=== PATIENT | female | born 1960 | race African-American/Black ===

== ENCOUNTER 2019-03-07 09:20 | Emergency (ER) | payer BC ==
[2019-03-07 10:10] LABS: #Basophils 0.1 thou/uL (0.0-0.2); #Eosinphils 0.1 thou/uL (0.0-0.7); #Lymphocytes 1.9 thou/uL (1.20-3.40); #Monocytes 0.4 thou/uL (0.11-0.59); #Neutrophils 2.1 thou/uL (1.40-6.50); %Basophils 1.2 % (0.0-1.0); %Eosinophils 1.6 % (0.0-10.0); %Lymphocytes 41.6 % (21.0-51.0); %Monocytes 9.2 % (0.0-10.0); %Neutrophils 46.4 % (42.0-75.0); Hemoglobin 13.7 g/dL (12.0-16.0); Mean Corpuscular Hemoglobin 33.1 pg (27.0-31.0); Mean Corpuscular Volume 97.6 fL (78.0-98.0); Mean Platelet Volume 7.9 fL (7.4-10.4); Platelet Count 201 thou/uL (130-400); RBC Distribution Width 12.2 % (11.5-14.5); Red Blood Cell (RBC) Count 4.14 mill/uL (4.20-5.40); White Blood Cell (WBC) Count 4.6 thou/uL (4.8-10.8)
[2019-03-07] MEDS ORDERED: cloNIDine 0.1 MG TAB ONE (10:16)
[2019-03-07 10:24] LABS: ALT (SGPT) 14 U/L (8-55); AST (SGOT) 17 U/L (5-34); Albumin 4.2 g/dL (3.5-5.0); Alkaline Phosphatase 91 U/L (40-150); Anion Gap 13 mmol/L (10-20); BUN (Urea Nitrogen) 11 mg/dL (9.8-20.1); Bilirubin, Total 1.8 mg/dL (0.2-1.2); Calc. Creatinine Clearance 0 mL/min (70-130); Calcium 9.6 mg/dL (7.8-10.44); Carbon Dioxide 23 mmol/L (22-29); Chloride 109 mmol/L (98-107); Estimated GFR-MDRD 85; Globulin 3.4 g/dL (2.4-3.5); Glucose 106 mg/dL (70-105); Potassium 3.8 mmol/L (3.5-5.1); Protein, Total 7.6 g/dL (6.0-8.3); Sodium 141 mmol/L (136-145)
--- NOTE | 2019-03-09 13:38 | EKG ---
Test Reason : ER INDICATION Blood Pressure : / mmHG Vent. Rate : 051 BPM Atrial Rate : 051 BPM P-R Int : 192 ms QRS Dur : 082 ms QT Int : 482 ms P-R-T Axes : 024 009 013 degrees QTc Int : 444 ms Sinus bradycardia with sinus arrhythmia Left ventricular hypertrophy Nonspecific T wave abnormality Abnormal ECG Confirmed by ОЛЬГА DICKINSON D.O. ([id number]), magazine editor GUILLERMINA TODD ([id number]) on 03/09/2019 1:38:24 PM Referred By: Confirmed By:ОЛЬГА DICKINSON D.O.
== END 2019-03-07 11:07 | disposition home or self-care (01) ==
LOC: ERS 09:20
DX: I10 Essential (primary) hypertension (principal); J45.909 Unspecified asthma, uncomplicated; Z79.899 Other long term (current) drug therapy
CPT/HCPCS: 80053; 84484; 85025; 93005

== ENCOUNTER 2021-11-01 08:14 | Outpatient (CLI) | payer BC | END 2021-11-01 08:15 | disposition home or self-care (01) | LOC: RAD 08:14 | PROVIDERS: ATTEND Internal Medicine Critical Care Medicine | DX: R06.00 Dyspnea, unspecified (principal) | CPT/HCPCS: 71046 ==